=== PATIENT | male | born 1940 | race Caucasian/White ===

== ENCOUNTER → 2016-07-24 | Outpatient (REF) | payer MEDICARE, OTHER | LOC: LAB 14:36 | PROVIDERS: ATTEND Family Medicine | DX: I48.2 Chronic atrial fibrillation (principal) | CPT/HCPCS: 85610 ==

== ENCOUNTER → 2016-08-12 | Outpatient (CLI) | payer MEDICARE, OTHER ==
[2016-08-12 10:13] LABS: MEAN CORPUSCULAR HEMOGLOBIN 27.6 PG (26.0-34.0); MEAN CORPUSCULAR VOLUME 84 FL (80-100); MEAN PLATELET VOLUME 10.3 FL (6.0-9.5); PLATELET COUNT 246 10^3uL (150-450); WHITE BLOOD COUNT 9.35 10^3uL (4.0-11.0)
[2016-08-12 10:17] LABS: BAND NEUTROPHILS % 0 % (0-6); EOSINOPHILS % 4 % (0-4); LYMPHOCYTES # 1.9 #; MONOCYTES # 0.1 #; MONOCYTES % 1 % (3-11); RBC MORPH NORMAL (NORMAL); SEGMENTED NEUTROPHILS % 75 % (51-67); TOTAL CELLS COUNTED 100
[2016-08-12 11:08] LABS: ALBUMIN 3.5 g/dL (3.4-5.0); ANION GAP 13.4 MEQ/L (3-15); CALCULATED IONIZED CALCIUM 4.2 mg/dL (3.8-4.6); MAGNESIUM* 1.6 mg/dL (1.6-2.3); PHOSPHORUS 2.9 mg/dL (2.4-4.9); TOTAL PROTEIN 6.5 g/dL (6.4-8.5)
== END ==
LOC: LAB 10:01
PROVIDERS: ATTEND Internal Medicine Hematology & Oncology
DX: C64.2 Malignant neoplasm of left kidney, except renal pelvis (principal); C78.7 Secondary malignant neoplasm of liver and intrahepatic bile duct
CPT/HCPCS: 36415; 80053; 83615; 83735; 84100; 85007; 85027

== ENCOUNTER → 2016-08-14 | Outpatient (CLI) | payer MEDICARE, OTHER | LOC: RAD 09:03 | PROVIDERS: ATTEND Internal Medicine Hematology & Oncology | DX: C64.2 Malignant neoplasm of left kidney, except renal pelvis (principal); C78.7 Secondary malignant neoplasm of liver and intrahepatic bile duct; K80.20 Calculus of gallbladder without cholecystitis without obstruction; R91.1 Solitary pulmonary nodule | CPT/HCPCS: 71250; 74176 ==

== ENCOUNTER → 2016-08-26 | Outpatient (REF) | payer MEDICARE, OTHER ==
[~2016-08-26] MED LIST: AC500T PO; ASPI-504 PO; ATOR40TA2 PO; DIGO250T15 PO; HYDR2TAB14 PO; IBUP200C PO; INSU100I14 SQ; INSU100V32 SQ; INSU200I SQ; LISI-596 PO; LSNP10T PO; LSNP20T PO; METF1000 PO; METO-270 PO; METO25TA60 PO; MIRT30TA3 PO; OMG1KC PO; SMTR50T PO; SOTA80TA PO; TAMS0.4C2 PO; WARF4TAB3 PO; WARF5TAB6 PO; WARF7.5T3 PO; WRF3T PO; [UNRECOGNIZED DRUG - CODE] PO
== END ==
LOC: LAB 14:40
PROVIDERS: ATTEND Family Medicine
DX: I48.2 Chronic atrial fibrillation (principal)
CPT/HCPCS: 85610

== ENCOUNTER → 2016-09-29 | Outpatient (REF) | payer MEDICARE, OTHER ==
[2016-09-29 15:32] LABS: ALBUMIN 3.8 g/dL (3.4-5.0); ANION GAP 14.6 MEQ/L (3-15); CALCULATED IONIZED CALCIUM 4.3 mg/dL (3.8-4.6); TOTAL PROTEIN 6.9 g/dL (6.4-8.5)
== END ==
LOC: LAB 15:01
PROVIDERS: ATTEND Family Medicine
DX: E11.9 Type 2 diabetes mellitus without complications (principal); E78.4 Other hyperlipidemia; I48.2 Chronic atrial fibrillation
CPT/HCPCS: 80053; 80061; 83036; 85610